=== PATIENT | female | born 1965 | race Caucasian/White ===

== ENCOUNTER → 2019-01-20 | Outpatient (CLI) | payer OTHER ==
--- NOTE | 2019-01-20 17:01 | Diagnostic Imaging Report ---
Thyroid ultrasound History: Multiple thyroid nodules. Comparison: None Findings: The thyroid echotexture is normal. Vascularity is normal. The right lobe measures 4.5 x 1.4 x 1.6 cm. The left lobe measures 4.3 x 1.2 x 1.6 cm. The isthmus measures 0.2 cm. Nodules: Right Lobe: There is a punctate 0.4 x 0.2 x 0.2 cm anechoic cystic nodule with coarse echogenic focus in the right mid pole thyroid. Total 0 points, TR 0. In the posterior mid pole, there is a 0.5 x 0.3 x 0.5 cm hypoechoic solid nodule that is wider than tall, smoothly marginated, and without echogenic foci. Total 4 points, TR 4. No evidence of nodule within the left thyroid lobe or isthmus. Lymph Nodes: No cervical lymph nodes are identified. Parathyroids: Not visualized. IMPRESSION: Moderately suspicious small hypoechoic nodule in the right mid pole thyroid is too small for FNA. Suggest follow-up ultrasound in 12 months to assess for stability. Signed by: Dr. Ginny Peng MD on 01/20/2019 4:58 PM
== END ==
LOC: US 13:36
PROVIDERS: ATTEND Otolaryngology
DX: E04.2 Nontoxic multinodular goiter (principal)
CPT/HCPCS: 76536

== ENCOUNTER → 2019-07-12 | Outpatient (CLI) | payer OTHER ==
--- NOTE | 2019-07-12 08:57 | Diagnostic Imaging Report ---
Thyroid ultrasound. History: Thyroid nodule. Comparison: 01/20/2019. Discussion: Transverse and longitudinal images of the thyroid were obtained demonstrating normal echogenicity of the thyroid. The sizes of the lobes are normal with the right thyroid lobe measuring 4.8 x 1.4 x 1.6 cm and the left measuring 4.7 x 1.2 x 1.4 cm. The isthmus slightly thickened measuring 4 mm. Nodules - Right: An oval hypoechoic nodule is present in the inferior pole of the right lobe posteriorly measuring 0.6 x 0.3 x 0.5 cm. A 0.3 x 0.1 x 0.3 cm cyst is also noted in the interpolar region. Left: A 0.2 x 0.1 x 0.2 cm cyst is present in the interpolar region. IMPRESSION: Stable small thyroid nodule and bilateral cysts. Signed by: Vaughn Sierra on 07/12/2019 8:53 AM
== END ==
LOC: US 07:41
PROVIDERS: ATTEND Otolaryngology
DX: E04.2 Nontoxic multinodular goiter (principal)
CPT/HCPCS: 76536

== ENCOUNTER 2020-11-30 09:56 | Emergency (ER) | payer OTHER ==
[~2020-11-30] VITALS: Ht 152.4 cm; Wt 88.5 kg
[2020-11-30 11:23] LABS: CLARITY,URINE CLOUDY (CLEAR); COLOR,URINE YELLOW (YELLOW); KETONES,URINE NEGATIVE (NEGATIVE); LEUKOCYTE ESTERASE ,URINE 1+ (NEGATIVE); NITRITE,URINE NEGATIVE (NEGATIVE); PROTEIN,URINE DIPSTICK NEGATIVE (NEGATIVE); URINE UROBILINOGEN 0.2 mg/dL (0.2 - 1)
[2020-11-30 11:32] LABS: BACTERIA,URINE FEW /HPF; RBC,URINE 21-50 /HPF (0-5); WBC,URINE (MAN) >50 /HPF (0-5)
[2020-11-30 11:33] LABS: EPITHELIAL CELLS,URINE FEW /LPF
[2020-11-30] MEDS ORDERED: ACETAMINOPHEN 325 MG TAB PO ONE (13:15)
[2020-11-30] MEDS ORDERED: CEFTRIAXONE SOD 1 GM VIAL IM ONE (13:15)
[2020-11-30] MEDS ORDERED: ACETAMINOPHEN 325 MG TAB ONE (13:17)
[2020-11-30] MEDS ORDERED: LIDOCAINE HCL 1% 2 ML AMP ONE (13:17)
[2020-11-30] MEDS ORDERED: CEFTRIAXONE SOD 1 GM VIAL ONE (13:17)
== END 2020-11-30 14:00 | disposition home or self-care (01) ==
LOC: ER 10:44
DX: R50.9 Fever, unspecified (principal); N39.0 Urinary tract infection, site not specified; E03.9 Hypothyroidism, unspecified; Z20.822 Contact with and (suspected) exposure to COVID-19
CPT/HCPCS: 81001; 87086; 99283; J0696; J2001; U0002

== ENCOUNTER 2020-12-01 12:25 | Emergency (ER) | payer OTHER ==
[~2020-12-01] VITALS: Ht 152.4 cm; Wt 88.5 kg
[2020-12-01] MEDS ORDERED: SODIUM CHLORIDE 0.9% 1000ML 1,000 ML IV STA (12:37)
[2020-12-01 13:01] LABS: BASOPHILS % 0.6 % (0.0-1.0); HEMATOCRIT 44.1 % (34.2-44.1); HEMOGLOBIN 15.3 g/dL (12.0-16.0); LYMPHOCYTES # (AUTO) 0.5 (1.0-3.2); LYMPHOCYTES % 9.4 % (18.0-39.1); MEAN CORPUSCULAR HEMOGLOBIN 30.2 pg (28-32); MEAN CORPUSCULAR HGB CONC 34.7 g/dL (31-35); MEAN CORPUSCULAR VOLUME 87.2 fL (81-99); MONOCYTES # (AUTO) 0.1 (0.2-0.8); MONOCYTES % 2.3 % (4.4-11.3); NEUTROPHILS # (AUTO) 4.2 (2.1-6.9); NEUTROPHILS % 86.7 % (38.7-80.0); PLATELET COUNT 141 x10e3/uL (140-360); RED BLOOD COUNT 5.06 x10e6/uL (3.6-5.1); RED CELL DISTRIBUTION WIDTH 11.8 % (11.7-14.4)
[2020-12-01 13:26] LABS: ALANINE AMINOTRANSFERASE 230 IU/L (0-55); ALBUMIN 3.8 g/dL (3.5-5.0); ALBUMIN/GLOBULIN RATIO 1.1 (0.8-2.0); ALKALINE PHOSPHATASE 180 IU/L (40-150); AMYLASE 40 U/L (25-125); ANION GAP 15.6 mmol/L (8-16); BLOOD UREA NITROGEN 6 mg/dL (7-26); BUN/CREATININE RATIO 8 (6-25); CALCIUM 8.7 mg/dL (8.4-10.2); CARBON DIOXIDE 23 mmol/L (22-29); CHLORIDE 103 mmol/L (98-107); CREATININE, SERUM 0.71 mg/dL (0.57-1.11); EST GLOMERULAR FILTRATION RATE > 60 ML/MIN (60-); GLUCOSE 113 mg/dL (74-118); LIPASE 217 U/L (8-78); POTASSIUM 3.6 mmol/L (3.5-5.1); SODIUM 138 mmol/L (136-145)
[2020-12-01] MEDS ORDERED: METOCLOPRAMIDE HCL 10 MG/2ML VIAL IV ONE (13:30)
[2020-12-01] MEDS ORDERED: DIPHENHYDRAMINE HCL INJ 50 MG/ML VIAL IV ONE (13:30)
[2020-12-01] MEDS ORDERED: KETOROLAC TROMETHAMINE 30 MG/ML VIAL IV ONE (13:30)
[2020-12-01 13:34] LABS: INFLUENZAE A&B ANTIGEN (RAPID) POSITIVE FLU B (NEGATIVE); STREPTOCOCCUS GRP A ANTIGEN NEGATIVE (NEGATIVE)
[2020-12-01] MEDS ORDERED: SODIUM CHLORIDE 0.9% 50ML 0 ML ONE (13:47)
[2020-12-01] MEDS ORDERED: IOPAMIDOL 370 MG/ML 200 ML INFUS..BTL INJ ONE ×2 (13:47→14:27)
[2020-12-01] MEDS ORDERED: SODIUM CHLORIDE 0.9% 50ML 50 ML ONE (14:27)
== END 2020-12-01 17:03 | disposition home or self-care (01) ==
LOC: ER 12:47
DX: R50.9 Fever, unspecified (principal); R11.0 Nausea; J11.1 Influenza due to unidentified influenza virus with other respiratory manifestations; N39.0 Urinary tract infection, site not specified; R51.9 Headache, unspecified; E03.9 Hypothyroidism, unspecified; R01.1 Cardiac murmur, unspecified
CPT/HCPCS: 36415; 71045; 74177; 76705; 80053; 82150; 83518; 83690; 85025; 87070; 87400; 99284; J1200; J1885; J2765; J7030; Q9967